=== PATIENT | male | born 1950 | race Caucasian/White ===

== ENCOUNTER → 2016-11-25 | Outpatient (CLI) | payer MEDICARE, BC ==
[~2016-11-25] MED LIST: BENAZEPRIL; BENAZEPRIL HCL40 MG PO; CYMBALTA PO; FLOMAX0.4 M1 PO; HUMALOG100 U/M2; HUMALOG100 U/ML SUBQ; HUMULIN N100 U/ML SQ; HUMULIN N100 U/ML SUBQ; HYDROCHLOROTHIA25 MG PO; KAYEXALATE453.6 GM PO; LEVEMIR100 U/ML; SPIRONOLAC1 TAB 25/2; TYLOX 5-500 CA1 EACH PO; VICODIN 5/1 TAB 5/50 PO
--- NOTE | ~2016-11-25 | MR154 ---
[facility] A Service of [facility] & [facility] RADIOLOGY TEXT RESULTS PATIENT: SURENDRA MONTELONGO LOCATION: [facility] : 52 UNIT #: [id number] AGE: [address]: Robert Camilo MD SEX: M ORDER DR: [id number] [address] [address] [id number] O MR#: [id number] Acc #: [id number] NAME: SURENDRA MONTELONGO : 1950 SEX: M STUDY DATE/TIME: 11/25/2016 9:43 UNIT: [facility] ROOM: STUDY DESCRIPTION: MR Pituitary Only WWo Cont Attending Physician: Robert Camilo M.D. Referring Physician: Robert Camilo M.D. Ordering Physician: Robert Camilo M.D. Primary Care Physician: Maegan Ayala M.D. MRI CENTER REPORT This report is preliminary unless electronic signature is present. EXAM MRI of the pituitary gland and the sella with and without contrast dated 11/25/2016 COMPARISON MRI of the pituitary gland and the brain dated 02/05/2013. HISTORY Followup postop pituitary tumor. Resection surgery on 09/05/2011. No new complaints. FINDINGS Coronal postcontrast dynamic imaging of the sella was obtained using thin slices. Multisequence multiplanar imaging of the sella and the pituitary gland were obtained with and without contrast. 20 mL of MultiHance was administered intravenously. GFR measured greater than 60. 20 mL of MultiHance was administered intravenously. Patient is known to have surgery in the sella with loss of pituitary soft tissue. The stalk is deviated to the left. The appearance of the sella and the gland are stable when compared to the previous study without any new abnormality. Bony changes in the adjacent base of the skull are stable. Suprasellar and parasellar structures are within normal limits. There are few hyperintense T2 signal white matter lesions both in the periventricular and subcortical white matter, relatively stable. They are likely related to mild chronic microvascular ischemic change based on age and statistics. IMPRESSION No significant interval change in the last 4 years. Stable postoperative changes in the sella/pituitary gland. Dictated by... Jonathan Pierre M.D. [facility] A Service of [facility] RADIOLOGY TEXT RESULTS PATIENT: SURENDRA MONTELONGO LOCATION: [facility] : 52 UNIT #: [id number] AGE: [address]: Robert Camilo MD SEX: M ORDER DR: THIS IS AN ELECTRONICALLY VERIFIED REPORT Jonathan Pierre M.D. at 11/29/2016 2:48 PM CPR/funmi TD: 11/28/2016 17:10 JOB #: [id number] MRI CENTER REPORT Page 1 of 1
== END | disposition home or self-care (01) ==
LOC: SMRI 11-23 09:30
DX: D35.2 Benign neoplasm of pituitary gland (principal); Z98.890 Other specified postprocedural states
CPT/HCPCS: 70553; A9581